=== PATIENT | female | born 1985 | race Caucasian/White ===

== ENCOUNTER 2020-04-21 06:13 | Day surgery (SDC) | payer BC ==
[2020-04-21] MEDS ORDERED: Ringers Lactate 1,000 ML IV ONE (06:42)
[2020-04-21] MEDS ORDERED: LIDOCAINE 1% W/EPI 1:100,000 MDV 20 ML VIAL ONE (07:04)
[2020-04-21] MEDS ORDERED: VASOPRESSIN 20 UNIT/ML VIAL ONE (07:04)
[2020-04-21] MEDS ORDERED: NA CHLORIDE 0.9% 1,000 ML ONE (07:13)
[2020-04-21] MEDS ORDERED: MIDAZOLAM HCL 2 MG/2 ML INJ ONE (07:15)
[2020-04-21] MEDS ORDERED: dexAMETHasone 10 MG/ML VIAL ONE (07:16)
[2020-04-21] MEDS ORDERED: KETOROLAC 30 MG/ML INJ ONE (07:16)
[2020-04-21] MEDS ORDERED: propofoL 200 MG/20 ML VIAL IV ONE (07:16)
[2020-04-21] MEDS ORDERED: LIDOCAINE 2% MPF 5 ML VIAL ONE (07:16)
[2020-04-21] MEDS ORDERED: FENTANYL CITR 100 MCG/2 ML ONE (07:16)
[2020-04-21] MEDS ORDERED: ONDANSETRON 4 MG/2 ML VIAL ONE (07:19)
[2020-04-21] MEDS ORDERED: CEFAZOLIN/SWI 2gm 2 GM/20 ML SYR ONE (07:46)
[2020-04-21] MEDS ORDERED: CEFAZOLIN/SWI 1gm 1 GM/10 ML SYR ONE (07:46)
[2020-04-21] MEDS ORDERED: DIPHENHYDRAMINE 50 MG/ML VIAL ONE (08:35)
[2020-04-21 09:09] VITALS: O2SAT 99
--- NOTE | 2020-04-21 09:32 | OP ---
Date of Procedure: 04/21/2020 Surgeon: Cheryl Vilchis MD Preoperative Diagnosis: Menorrhagia (AUB-O/I). Postoperative Diagnosis: Menorrhagia (AUB-O/I). Procedure Performed: Hysteroscopy, endometrial ablation with NovaSure. Anesthesia: General with LMA. Specimens: No specimens. Complications: None. Drains: None. Condition: Stable. Indication: The patient is a 34-year-old female with heavy bleeding, had G6, P2, 2 C-sections. Thre e miscarriages and the termination. Allergy to hives. Significant medical problems include Crohn di sease, anxiety related issues and migraines. The patient has been evaluated for her bleeding. Endom etrial sampling was performed. Uterus enlarged. Simple ovarian cyst with heterogeneous myometrium. Uterine cavity had thickened endometrium. Endometrial sampling was performed, which showed chronic endometritis with an exogenous hormonal pattern from her Depo that was given for control of her bleed ing. We discussed about all the options. She had used combination oral contraceptives a year and ortiz lf ago and had to stop as her weight was increasing. She declined to have Depo either. She is statu s post tubal ligation after in 2013, completed childbearing. So, the alternatives that she had were discussed including continuation of an IUD or ablation given the endometritis pattern in the endometrium. IUD was less favorable. Patient also completely did not desire that option, so ablati on was discussed, the chance that there is a 90% success in short term, with a 75% success in the tory elida term in patients over 40, was discussed and her being only 34. The risk of recurrence of bleedin g despite short-term benefit was reviewed and the patient was consented appropriately and brought to the OR. She was given doxycycline b.i.d. for 14 days prior to her procedure. Then, she was given Ancef 3 g p reop after a test dose was given and she tolerated that without any problems. A full 3 g dose was gi christian. The patient was taken back to the OR. Her was present at her bedside and I discussed a ll her procedure, success, benefits and risks and both of them were able to give consent. Description Of Procedure: After taking her to the OR, placed in a supine fashion on the operating ta ble, general anesthesia was given using LMA. The patient was placed in a dorsal lithotomy position. Vulva, vagina, and perineum was prepped and draped in a sterile fashion. Speculum was placed to exp ose the cervix. Anterior lip was grasped with 2 Allis clamps. Diagnostic SlimLine hysteroscope was used to enter the uterine cavity under direct vision. Entire cavity was well visualized. There were no intracavitary lesions. Endometrium appeared to be unremarkable. Cavity was measured directly un jacy direct vision. The cavity length was 10.10 cm. The cervical length was 4.5, so the calculated c avity length was 5.5 cm. The scope was removed. Then the device was activated and started, placed i n the uterine cavity, found it was deployed. Initially, the fan was unable to be deployed. She was extremely anteflexed and once this was confirmed with hysteroscopy again to see that there was no per foration, then placed the device back in and the fan opened up to 3.6 cm. This was fed into the gene rator. Then, the power setting was at 109 taylor. Cervical occlusion was done after replacing the Al lis clamps with the tenaculum well. There was cavity integrity test that passed and the ablation cyc le was started 58 seconds for the ablation cycle, power setting of 109 taylor, and once this was compl ete, device was undeployed in the usual fashion and removed. Hysteroscopy was performed again to vis ualize the ablation effect and there was a global ablation effect in excellent fashion. After the sc ope was removed, all the instruments were removed. Instrument, needle, and sponge counts were correc t at the end of the case. The patient tolerated the procedure well. She was recovered from anesthes ia and taken to PACU in stable condition. She has a 1 month followup appointment with me. No furthe r antibiotics were needed for this patient, and she will be given Tylenol No.3, will be called into er pharmacy [facility] in [place]. Her was notified of the findings. She will be discharged home today without any problems. LARA/CHELSI Voice ID: [id number] Report ID: [id number]
[2020-04-21] MEDS ORDERED: HYDROCODONE/APAP 5/325 MG TAB ONE (09:45)
[2020-04-21 10:19] VITALS: TEMP 97.1
[2020-04-21 10:23] VITALS: BP 120/73
== END 2020-04-21 10:00 | disposition home or self-care (01) ==
LOC: OR 06:13
PROVIDERS: ATTEND Obstetrics & Gynecology
PROC: 0U5B8ZZ Destruction of Endometrium, Via Natural or Artificial Opening Endoscopic (ICD-10-PCS; principal; 2020-04-21 07:30)
DX: N92.0 Excessive and frequent menstruation with regular cycle (principal); N71.9 Inflammatory disease of uterus, unspecified; F41.9 Anxiety disorder, unspecified; K50.90 Crohn's disease, unspecified, without complications; G43.909 Migraine, unspecified, not intractable, without status migrainosus; Z20.828 Contact with and (suspected) exposure to other viral communicable diseases
CPT/HCPCS: 81025; 58563; U0002; J2704; J1200; J2250; J3010; J1100; J0690 ×2; J7120; J7030; J2405